=== PATIENT | female | born 1970 | race Caucasian/White ===

== ENCOUNTER 2017-02-28 22:44 | Emergency (ER) | payer BC, MEDICAID ==
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
[2017-02-28 23:42] LABS: % EOSINOPHILS 1.2 % (0.0-5.0); % LYMPHOCYTES 32.4 % (20.0-50.0); % MONOCYTES 7.6 % (2.0-10.0); % NEUTROPHILS 57.8 % (40.0-80.0); HEMATOCRIT 45.9 % (35.0-45.0); HEMOGLOBIN 15.4 gm/dL (11.7-15.5); MEAN CELL VOLUME 88.9 fl (81-100); MEAN CORPUSCULAR HEMOGLOBIN 29.9 pg (27.0-31.0); MEAN CORPUSCULAR HGB CONC 33.6 pg (28.0-36.0); MEAN PLATELET VOLUME 10.1 fl; NEUTROPHILE ABSOLUTE 5.2 Th/cmm (1.8-8.0); PLATELET COUNT 204 Th/cmm (150-400); RED BLOOD COUNT 5.17 Mil/cmm (3.80-5.10); RED CELL DISTRIBUTION WIDTH 11.2 % (11.5-20.0)
[2017-02-28 23:57] LABS: ALB/GLOB RATIO 1.2 (1.0-1.8); ALKALINE PHOSPHATASE 104 U/L (34-104); ANION GAP 9.8 (7.0-16.0); BILIRUBIN,TOTAL 0.6 mg/dL (0.3-1.0); BUN - UREA NITROGEN 12 mg/dL (7-25); CALCIUM SERUM 9.5 mg/dL (8.6-10.3); CHLORIDE 103 mEq/L (98-107); CREATININE - SERUM 0.5 mg/dL (0.6-1.2); GLUCOSE 384 mg/dL (70-105); POTASSIUM SERUM 3.8 mEq/L (3.5-5.1); SGOT 14 U/L (13-39); SGPT/ALT 19 U/L (7-52); SODIUM SERUM 130 mEq/L (136-145)
[2017-03-01] MEDS ORDERED: Morphine Sulfate 4 mg/mL 1mL Syr ONE (00:26)
[2017-03-01] MEDS ORDERED: Morphine Sulfate 2 mg/mL 1mL Syr ONE (00:26)
[2017-03-01] MEDS ORDERED: INSULIN ASPART, RECOMBINANT 100 UNITS/ML SUBQ ONE ×2 (00:58→01:06)
[2017-03-01] MEDS ORDERED: HYDROmorphone 1 mg/mL 1mL Syr IVP STA (01:12)
[2017-03-01] MEDS ORDERED: HYDROmorphone 1 mg/mL 1mL Syr ONE (01:19)
--- NOTE | 2017-03-01 11:17 | Diagnostic Imaging Report ---
CT scan of the brain without contrast History: Headache Total DLP equals 681 CTDI equals 37.4 Axial sections were obtained from the base of the skull to the vertex. There is a normal ventricular system size. No focal parenchymal lesions are seen. No evidence of any mass effect or shift of midline structures. No extra-axial masses or abnormal fluid collections. Impression: Negative examination
== END 2017-03-01 01:35 | disposition home or self-care (01) ==
LOC: ER 22:44
DX: R51 Headache (principal); I10 Essential (primary) hypertension; E11.9 Type 2 diabetes mellitus without complications; Z88.0 Allergy status to penicillin; Z88.8 Allergy status to other drugs, medicaments and biological substances; Z90.49 Acquired absence of other specified parts of digestive tract
CPT/HCPCS: 36415-UA; 70450-TC; 80053-TC; 81025-TC; 83036-90; 84484-TC; 85025-TC; 93005; 96374; 96375; J1170; J1200; J1815; J2270; J2405; Z7610